=== PATIENT | female | born 1955 | race African-American/Black ===

== ENCOUNTER 2025-01-25 16:22 | Emergency (ER) | payer MEDICARE, MEDICAID ==
[~2025-01-25] VITALS: Ht 149.9 cm; Wt 55.0 kg
[~2025-01-25 16:22] MED LIST: GABA-529 PO; LACT-247 PO; LEVO-65 PO; TOPUD PO; TRAM50TA3 PO
[2025-01-25 16:23] VITALS: TEMP 36.9; O2SAT 99
[2025-01-25] MEDS: METOCLOPRAMIDE HCL 10MG TABLET PO ONE (17:05)
[2025-01-25 17:06] VITALS: TEMP 98.5
[2025-01-25] MEDS: ACETAMINOPHEN 325MG TABLET PO ONE (17:06)
[2025-01-25] MEDS: DIPHENHYDRAMINE 25MG CAPSULE PO ONE (17:09)
[2025-01-25] MEDS ORDERED: ACET-2708 MT (18:48)
[2025-01-25 19:30] VITALS: BP 155/73; PULSE 69; RESP 17; O2SAT 100
== END 2025-01-25 20:00 | disposition home or self-care (01) ==
LOC: ER 16:22
DX: F41.1 Generalized anxiety disorder (principal); G44.209 Tension-type headache, unspecified, not intractable; I10 Essential (primary) hypertension; Z79.899 Other long term (current) drug therapy
CPT/HCPCS: 99284; 70450; Q0163; J8597; A4606